=== PATIENT | female | born 1955 | race Caucasian/White ===

== ENCOUNTER 2016-12-31 03:51 | Emergency (ER) | payer OTHER ==
[~2016-12-31] VITALS: Ht 167.6 cm; Wt 150.7 kg
[2016-12-31] MEDS ORDERED: KETOROLAC 30 MG/1 ML ONE (04:22)
[2016-12-31] MEDS ORDERED: KETOROLAC 30 MG/1 ML IVPush ONE (04:30)
[2016-12-31] MEDS ORDERED: HYDROmorphone 1 MG/ML, 1ML ONE ×2 (04:40→05:29)
[2016-12-31] MEDS ORDERED: LISIN (04:47)
[2016-12-31] MEDS ORDERED: METFORMIN (04:47)
[2016-12-31] MEDS ORDERED: ZOLP-413 PO (04:47)
[2016-12-31 04:56] LABS: HEMATOCRIT 43.9 % (34.6-47.8); WHITE BLOOD COUNT 8.9 x10^3/uL (3.4-10)
[2016-12-31] MEDS ORDERED: HYDROmorphone 1 MG/ML, 1ML IV ONE ×2 (05:00→06:00)
[2016-12-31 05:04] LABS: BLOOD UREA NITROGEN 19 mg/dL (7-18)
[2016-12-31 05:08] LABS: ASPARTATE AMINO TRANSFERASE 55 U/L (15-37)
[2016-12-31] MEDS ORDERED: FLUCONAZOLE 100 MG TABLET PO ONE (05:30)
[2016-12-31 08:23] VITALS: BP 141/75
== END 2016-12-31 09:09 | disposition home or self-care (01) ==
LOC: ED 04:44
DX: B37.3 Candidiasis of vulva and vagina (principal); E11.9 Type 2 diabetes mellitus without complications; I10 Essential (primary) hypertension; Z90.710 Acquired absence of both cervix and uterus; Z90.49 Acquired absence of other specified parts of digestive tract
CPT/HCPCS: 36415; 74176; 80053; 81001; 83690; 85025; 87086; 87106; 96374; 96375; 96376; 99285; J1170; J1885

== ENCOUNTER 2020-03-19 21:45 | Inpatient (IN) | payer OTHER ==
[~2020-03-19] VITALS: Ht 167.6 cm; Wt 135.5 kg
[~2020-03-19 21:45] MED LIST: LISIN; METFORMIN; ZOLP-413 PO
--- NOTE | 2020-03-19 22:21 | NUR ---
Pt. in soiled clothing. Skin dirty. Entire buttocks and groin red and tender. This RN discarding pt.'s soiled clothing, cleaning pt, now on clean dry bedding, warm blankets provided. Lab at bedside.
[2020-03-19] MEDS ORDERED: MORPHINE SULFATE 4 MG/ML, 1ML IVPush PRN (22:30)
[2020-03-19] MEDS ORDERED: ONDANSETRON 2MG/ML, 2ML IVPush ONE (22:30)
[2020-03-19] MEDS ORDERED: SODIUM CHLORIDE 0.9% 1,000ML IVBOLUS ONE (22:30)
[2020-03-19] MEDS ORDERED: ONDANSETRON 2MG/ML, 2ML ONE (22:34)
[2020-03-19 22:35] LABS: BASOPHILS % (AUTO) 1 % (0-1); EOSINOPHILS % (AUTO) 0 % (1-7); LYMPHOCYTES % (AUTO) 11 % (22-44); MEAN CORPUSCULAR HEMOGLOBIN 30.6 pg (27.0-34.8); MEAN CORPUSCULAR HGB CONC 33.8 g/dL (32.4-35.8); MEAN PLATELET VOLUME 8.4 fL (7.4-10.4); MONOCYTES % (AUTO) 9 % (2-9); NEUTROPHILS % (AUTO) 79 % (42-75); PLATELET COUNT 325 x10^3/uL (130-400); RED BLOOD COUNT 4.79 x10^6/uL (3.82-5.3); RED CELL DISTRIBUTION WIDTH 13.5 % (9.6-15.2)
[2020-03-19] MEDS ORDERED: MORPHINE SULFATE 4 MG/ML, 1ML ONE (22:35)
--- NOTE | 2020-03-19 22:38 | NUR ---
Pt to imaging
[2020-03-19 22:42] LABS: INTERNATIONAL NORMALIZED RATIO 1.1 (0.93-1.1); PROTHROMBIN TIME 11.6 Seconds (9.6-11.5)
--- NOTE | 2020-03-19 22:46 | NUR ---
BREAK RN: PT. OUT OF ROOM FOR IMAGING; AWAITING RETURN FOR MEDS/IVF.
[2020-03-19 22:54] LABS: ALBUMIN 3.6 g/dL (3.4-5.0); CALCIUM 8.9 mg/dL (8.5-10.1); CREATININE 1.01 mg/dL (0.55-1.02)
[2020-03-19 22:59] LABS: MD SCAN
[2020-03-19] MEDS ORDERED: CEFTRIAXONE PMX 1GM/50ML 50 ML IV ONE (23:00)
[2020-03-19] MEDS ORDERED: CEFTRIAXONE PMX 1GM/50ML 50 ML ONE (23:03)
--- NOTE | 2020-03-19 23:11 | NUR ---
BREAK RN: IMANI CARE PROVIDED AND PURWICK PLACED. PT. SKIN TO GROIN AND IMANI AREA EXCORIATED; PT. STATES "I WAS UNABLE TO GET UP SO I LAID IN MY OWN PEE FOR HOURS." IV ABX HUNG AFTER 2 SETS OF BLOOD CULTURES COMPLETED.
[2020-03-19 23:18] LABS: ALANINE AMINOTRANSFERASE 32 U/L (12-78); ALKALINE PHOSPHATASE 75 U/L (45-117); ANION GAP 11 mmol/L (5-15); CHLORIDE 106 mmol/L (98-107); CREATINE KINASE, TOTAL 1060 U/L (26-192); TOTAL PROTEIN 7.1 g/dL (6.4-8.2); TROPONIN I < 0.015 ng/mL (0.000-0.045)
[2020-03-19 23:21] LABS: BILIRUBIN,TOTAL 1.2 mg/dL (0.2-1.0)
--- NOTE | 2020-03-19 23:53 | NUR ---
Pt resting in bed, denies needs at this time.
--- NOTE | 2020-03-20 00:13 | NUR ---
RN at bedside. Rocephin infusion complete. NS infusing. Pt reports the morphine helped with the pain but she still feels a little sore.
[2020-03-20] MEDS ORDERED: SODIUM CHLORIDE 0.9% 1,000ML IVBOLUS ONE (00:30)
[2020-03-20] MEDS ORDERED: NYSTATIN CRM 15GM TP ONE (00:38)
[2020-03-20] MEDS ORDERED: ONDANSETRON ODT 4 MG PO PRN (01:00)
[2020-03-20] MEDS: SODIUM CHLORIDE 0.9% 1,000 ML IV SCH ×2 (01:00→16:18)
[2020-03-20] MEDS ORDERED: PROMETHAZINE 25 MG/ML, 1ML IM PRN (01:00)
[2020-03-20] MEDS ORDERED: DOCUSATE 100 MG CAPSULE PO PRN (01:00)
[2020-03-20] MEDS ORDERED: POLYETHYLENE GLYCOL 17 GM PACKET PO PRN (01:00)
[2020-03-20] MEDS ORDERED: BISACODYL 10 MG SUPP PR PRN (01:00)
[2020-03-20] MEDS ORDERED: ONDANSETRON 2MG/ML, 2ML IVPush PRN (01:00)
--- NOTE | 2020-03-20 01:02 | NUR ---
Leon SONG collected and walked to lab.
--- NOTE | 2020-03-20 01:02 | NUR ---
Nystatin cream applied.
[2020-03-20] MEDS ORDERED: ENOXAPARIN 40 MG/0.4 ML ONE (01:06)
--- NOTE | 2020-03-20 01:30 | NUR ---
This RN talked to pt.'s daughter in law on phone per pt. permission and gave her update.
[2020-03-20 01:45] LABS: MICROSCOPIC INDICATED
[2020-03-20] MEDS: ENOXAPARIN 40 MG/0.4 ML SQ SCH (01:45)
--- NOTE | 2020-03-20 01:46 | NUR ---
Attempted 3x to get fingerstick bedside blood glucose but glucometer read "error" everytime. Lovenox shot given.
--- NOTE | 2020-03-20 02:00 | NUR ---
Bedside sugar 292
--- NOTE | 2020-03-20 02:03 | NUR ---
Pt.'s daughter in-law Marli phone number: [phone].
--- NOTE | 2020-03-20 02:05 | NUR ---
Pt being tranpsorted to room 365.
[2020-03-20 02:22] VITALS: BP 143/65
[2020-03-20] MEDS: morphine SULFATE 10 MG/ML, 1ML IVPush PRN ×4 (02:53→13:04)
[2020-03-20 02:59] LABS: BASOPHILS % (AUTO) 1 % (0-1); EOSINOPHILS % (AUTO) 1 % (1-7); LYMPHOCYTES % (AUTO) 19 % (22-44); MEAN CORPUSCULAR HEMOGLOBIN 30.8 pg (27.0-34.8); MEAN CORPUSCULAR HGB CONC 34.1 g/dL (32.4-35.8); MEAN PLATELET VOLUME 8.3 fL (7.4-10.4); MONOCYTES % (AUTO) 13 % (2-9); NEUTROPHILS % (AUTO) 66 % (42-75); PLATELET COUNT 261 x10^3/uL (130-400); RED CELL DISTRIBUTION WIDTH 13.4 % (9.6-15.2)
[2020-03-20] MEDS ORDERED: LISI40TA PO (03:11)
[2020-03-20 03:13] LABS: ALANINE AMINOTRANSFERASE 27 U/L (12-78); ALBUMIN 3.1 g/dL (3.4-5.0); ANION GAP 10 mmol/L (5-15); CALCIUM 8.3 mg/dL (8.5-10.1); CHLORIDE 110 mmol/L (98-107)
[2020-03-20] MEDS ORDERED: GLIP10TA13 PO (03:13)
[2020-03-20] MEDS ORDERED: ZOLP10TA PO (03:16)
[2020-03-20] MEDS ORDERED: TOPI50TA8 PO (03:16)
[2020-03-20 03:21] LABS: ALKALINE PHOSPHATASE 62 U/L (45-117); CHOL/HDL RATIO 2.9; CHOLESTEROL, TOTAL 126 mg/dL (140-239); CREATININE 0.75 mg/dL (0.55-1.02); HDL CHOL % 35 % (28-40); HDL CHOLESTEROL (DIRECT) 44 mg/dL (40-60); LDL CHOLESTEROL,CALCULATED 57 mg/dL (54-169); LDL/HDL RATIO 1.3 (0.5-3.0); TOTAL PROTEIN 6.2 g/dL (6.4-8.2); TRIGLYCERIDES 124 mg/dL (50-200); VLDL CHOLESTEROL 25 mg/dL (0-25)
[2020-03-20] MEDS ORDERED: METF10007 PO (03:23)
[2020-03-20] MEDS ORDERED: DICL-249 PO (03:23)
[2020-03-20] MEDS ORDERED: ATOR20TA86 PO (03:23)
[2020-03-20] MEDS: INSULIN LISPRO 100 UNITS/ML, PEN SQ-INSULIN SCH ×5 (03:45→21:05)
[2020-03-20 03:49] LABS: MD SCAN
[2020-03-20] MEDS ORDERED: FLU VACC QS2020-21(6MOS UP)/PF 60MCG/0.5 ML SYR IM ONE (04:00)
[2020-03-20 06:51] VITALS: BP 121/70
[2020-03-20 12:28] VITALS: BP 161/90
[2020-03-20] MEDS ORDERED: ACETAMINOPHEN 325 MG TABLET PO PRN (13:30)
[2020-03-20] MEDS: MORPHINE SULFATE 4 MG/ML, 1ML IVPush PRN ×2 (17:02→21:05)
[2020-03-20 19:30] VITALS: BP 129/66
[2020-03-20] MEDS: HYDROCORTISONE CRM 2.5%, 20GM TP SCH (21:05)
[2020-03-20] MEDS: CEFTRIAXONE PMX 2GM/50ML 50 ML IVPB SCH (23:03)
[2020-03-20] MEDS: OXYcodone IR 5MG TABLET PO PRN (23:09)
[2020-03-21] MEDS: ENOXAPARIN 40 MG/0.4 ML SQ SCH ×2 (00:53→23:44)
[2020-03-21] MEDS: SODIUM CHLORIDE 0.9% 1,000 ML IV SCH (00:53)
[2020-03-21 02:35] VITALS: BP 153/71
[2020-03-21] MEDS: OXYcodone IR 5MG TABLET PO PRN ×4 (03:30→21:23)
[2020-03-21] MEDS: ACETAMINOPHEN 325 MG TABLET PO PRN (03:30)
[2020-03-21 06:46] VITALS: BP 147/71
[2020-03-21] MEDS: INSULIN LISPRO 100 UNITS/ML, PEN SQ-INSULIN SCH ×4 (07:32→20:25)
[2020-03-21] MEDS: HYDROCORTISONE CRM 2.5%, 20GM TP SCH ×2 (08:04→20:24)
[2020-03-21] MEDS: metFORMIN 500 MG TABLET PO SCH ×2 (09:56→16:30)
[2020-03-21] MEDS: MORPHINE SULFATE 4 MG/ML, 1ML IVPush PRN ×4 (11:28→23:58)
[2020-03-21 13:04] VITALS: BP 157/72
[2020-03-21 18:50] VITALS: BP 156/71
[2020-03-21] MEDS: CEFTRIAXONE PMX 2GM/50ML 50 ML IVPB SCH (22:47)
[2020-03-22] VITALS (7 sets, daily range): BP systolic 149–197; BP diastolic 63–97
[2020-03-22] MEDS: OXYcodone IR 5MG TABLET PO PRN ×5 (01:57→21:41)
[2020-03-22] MEDS: MORPHINE SULFATE 4 MG/ML, 1ML IVPush PRN (04:08)
[2020-03-22 06:05] LABS: BASOPHILS % (AUTO) 1 % (0-1); EOSINOPHILS % (AUTO) 3 % (1-7); LYMPHOCYTES % (AUTO) 28 % (22-44); MEAN CORPUSCULAR HEMOGLOBIN 30.8 pg (27.0-34.8); MEAN CORPUSCULAR HGB CONC 34.3 g/dL (32.4-35.8); MONOCYTES % (AUTO) 9 % (2-9); NEUTROPHILS % (AUTO) 60 % (42-75); PLATELET COUNT 258 x10^3/uL (130-400); RED BLOOD COUNT 4.18 x10^6/uL (3.82-5.3)
[2020-03-22 06:19] LABS: CHLORIDE 107 mmol/L (98-107); MD NO
[2020-03-22 06:25] LABS: ANION GAP 8 mmol/L (5-15); CALCIUM 8.7 mg/dL (8.5-10.1); CREATININE 0.52 mg/dL (0.55-1.02)
[2020-03-22] MEDS: hydrALAzine 20 MG/ML, 1ML IVPush PRN ×3 (08:00→19:22)
[2020-03-22] MEDS: metFORMIN 500 MG TABLET PO SCH ×2 (08:02→16:57)
[2020-03-22] MEDS: HYDROCORTISONE CRM 2.5%, 20GM TP SCH ×2 (08:03→19:58)
[2020-03-22] MEDS: INSULIN LISPRO 100 UNITS/ML, PEN SQ-INSULIN SCH ×4 (08:04→19:57)
[2020-03-22] MEDS: METHOCARBAMOL 500 MG TABLET PO SCH ×3 (13:27→19:50)
[2020-03-22] MEDS: LISINOPRIL 40 MG TABLET PO SCH (13:27)
[2020-03-22] MEDS: metroNIDAZOLE 500 MG TABLET PO SCH ×2 (13:27→21:39)
[2020-03-22] MEDS: POLYETHYLENE GLYCOL 17 GM PACKET PO SCH (13:54)
[2020-03-22] MEDS: BISACODYL 10 MG SUPP PR SCH (13:54)
[2020-03-22] MEDS: GABAPENTIN 100 MG CAPSULE PO SCH ×2 (16:57→19:50)
[2020-03-22] MEDS: LORazepam 2 MG/ML, 1ML IVPush ONE ×2 (17:56→18:12)
[2020-03-22] MEDS: PHENAZOPYRIDINE 100 MG TABLET PO PRN (22:28)
[2020-03-22] MEDS: CEFTRIAXONE PMX 2GM/50ML 50 ML IVPB SCH (22:32)
[2020-03-23] MEDS: ENOXAPARIN 40 MG/0.4 ML SQ SCH ×2 (00:51→23:20)
[2020-03-23] MEDS: PHENAZOPYRIDINE 100 MG TABLET PO PRN (01:07)
[2020-03-23 03:09] VITALS: BP 157/80
[2020-03-23] MEDS: metroNIDAZOLE 500 MG TABLET PO SCH ×3 (05:07→20:21)
[2020-03-23] MEDS: GABAPENTIN 100 MG CAPSULE PO SCH ×4 (05:07→20:21)
[2020-03-23] MEDS: SODIUM CHLORIDE 0.9% 1,000 ML IV SCH ×2 (06:32→20:22)
[2020-03-23 07:42] VITALS: BP 132/68
[2020-03-23] MEDS: INSULIN LISPRO 100 UNITS/ML, PEN SQ-INSULIN SCH ×4 (08:44→20:33)
[2020-03-23] MEDS: LISINOPRIL 40 MG TABLET PO SCH (08:44)
[2020-03-23] MEDS: METHOCARBAMOL 500 MG TABLET PO SCH ×3 (08:44→20:21)
[2020-03-23] MEDS: metFORMIN 500 MG TABLET PO SCH ×2 (08:44→17:52)
[2020-03-23] MEDS: POLYETHYLENE GLYCOL 17 GM PACKET PO SCH (08:44)
[2020-03-23] MEDS: BISACODYL 10 MG SUPP PR SCH (08:45)
[2020-03-23] MEDS: HYDROCORTISONE CRM 2.5%, 20GM TP SCH ×2 (08:45→20:22)
[2020-03-23] MEDS: OXYcodone IR 5MG TABLET PO PRN (12:01)
[2020-03-23 12:11] VITALS: BP 151/74
[2020-03-23] MEDS ORDERED: OXYcodone IR 5MG TABLET PO PRN (17:00)
[2020-03-23 19:27] VITALS: BP 141/69
[2020-03-23] MEDS: CEFTRIAXONE PMX 2GM/50ML 50 ML IVPB SCH (23:20)
[2020-03-23 23:54] VITALS: BP 167/76
[2020-03-24] MEDS: ACETAMINOPHEN 325 MG TABLET PO PRN (01:09)
[2020-03-24] MEDS: metroNIDAZOLE 500 MG TABLET PO SCH ×3 (05:17→20:49)
[2020-03-24] MEDS: GABAPENTIN 100 MG CAPSULE PO SCH ×4 (05:17→20:49)
[2020-03-24 06:16] VITALS: BP 147/87
[2020-03-24 06:26] VITALS: BP 175/78
[2020-03-24] MEDS: INSULIN LISPRO 100 UNITS/ML, PEN SQ-INSULIN SCH ×4 (07:00→20:50)
[2020-03-24] MEDS: METHOCARBAMOL 500 MG TABLET PO SCH ×3 (07:58→20:49)
[2020-03-24] MEDS: POLYETHYLENE GLYCOL 17 GM PACKET PO SCH (07:58)
[2020-03-24] MEDS: LISINOPRIL 40 MG TABLET PO SCH (07:58)
[2020-03-24] MEDS: metFORMIN 500 MG TABLET PO SCH ×2 (07:58→16:11)
[2020-03-24] MEDS: HYDROCORTISONE CRM 2.5%, 20GM TP SCH ×2 (07:59→20:49)
[2020-03-24] MEDS: BISACODYL 10 MG SUPP PR SCH (07:59)
[2020-03-24 13:03] VITALS: BP 151/71
[2020-03-24 18:31] VITALS: BP 153/79
[2020-03-24] MEDS: CEFTRIAXONE PMX 2GM/50ML 50 ML IVPB SCH (22:34)
[2020-03-24] MEDS: ENOXAPARIN 40 MG/0.4 ML SQ SCH (22:35)
[2020-03-24] MEDS: ATORVASTATIN 20 MG TABLET PO SCH (22:38)
[2020-03-25 00:12] VITALS: BP 135/72
[2020-03-25] MEDS: GABAPENTIN 100 MG CAPSULE PO SCH ×4 (06:09→20:26)
[2020-03-25] MEDS: INSULIN LISPRO 100 UNITS/ML, PEN SQ-INSULIN SCH ×4 (07:33→20:28)
[2020-03-25] MEDS: metFORMIN 500 MG TABLET PO SCH ×2 (07:34→16:25)
[2020-03-25] MEDS: LISINOPRIL 40 MG TABLET PO SCH (07:34)
[2020-03-25] MEDS: POLYETHYLENE GLYCOL 17 GM PACKET PO SCH (07:34)
[2020-03-25] MEDS: TOPIRAMATE 25 MG TABLET PO SCH ×2 (07:34→20:26)
[2020-03-25] MEDS: METHOCARBAMOL 500 MG TABLET PO SCH ×3 (07:34→20:27)
[2020-03-25] MEDS: HYDROCORTISONE CRM 2.5%, 20GM TP SCH ×2 (07:34→20:26)
[2020-03-25] MEDS: BISACODYL 10 MG SUPP PR SCH (07:35)
[2020-03-25 08:41] VITALS: BP 140/85
[2020-03-25] MEDS ORDERED: BISA10SU4 PR (12:34)
[2020-03-25] MEDS ORDERED: ONDA4TAB13 PO (12:34)
[2020-03-25] MEDS ORDERED: ENOX40SY4 SQ (12:34)
[2020-03-25] MEDS ORDERED: METH500T7 PO (12:34)
[2020-03-25] MEDS ORDERED: ZOLP-413 PO (12:34)
[2020-03-25] MEDS ORDERED: DOCU100C33 PO (12:34)
[2020-03-25] MEDS ORDERED: INSU100I11 SQ-INSULIN (12:34)
[2020-03-25] MEDS ORDERED: ACET325T26 PO (12:34)
[2020-03-25] MEDS ORDERED: SULF1TAB24 PO (12:36)
[2020-03-25 14:12] VITALS: BP 148/75
[2020-03-25 18:34] VITALS: BP 163/85
[2020-03-25] MEDS: ATORVASTATIN 20 MG TABLET PO SCH (20:26)
[2020-03-25] MEDS: ENOXAPARIN 30 MG/0.3 ML SQ SCH (20:27)
[2020-03-25] MEDS: CEFTRIAXONE PMX 2GM/50ML 50 ML IVPB SCH (22:59)
[2020-03-26 00:12] VITALS: BP 165/77
[2020-03-26] MEDS: GABAPENTIN 100 MG CAPSULE PO SCH ×2 (06:15→11:44)
[2020-03-26] MEDS: INSULIN LISPRO 100 UNITS/ML, PEN SQ-INSULIN SCH ×2 (07:00→11:00)
[2020-03-26 07:09] VITALS: BP 155/77
[2020-03-26] MEDS: metFORMIN 500 MG TABLET PO SCH (07:34)
[2020-03-26] MEDS: ACETAMINOPHEN 325 MG TABLET PO PRN (07:35)
[2020-03-26] MEDS: LISINOPRIL 40 MG TABLET PO SCH (08:57)
[2020-03-26] MEDS: TOPIRAMATE 25 MG TABLET PO SCH (08:57)
[2020-03-26] MEDS: METHOCARBAMOL 500 MG TABLET PO SCH (08:57)
[2020-03-26] MEDS: HYDROCORTISONE CRM 2.5%, 20GM TP SCH (08:58)
[2020-03-26] MEDS: ENOXAPARIN 30 MG/0.3 ML SQ SCH (08:58)
[2020-03-26] MEDS: POLYETHYLENE GLYCOL 17 GM PACKET PO SCH (08:59)
[2020-03-26] MEDS: BISACODYL 10 MG SUPP PR SCH (09:00)
== END 2020-03-26 13:49 | DRG 872 ==
LOC: ED 03-20 01:44 → 3N 03-20 02:17
PROVIDERS: ADMIT Internal Medicine; ATTEND Internal Medicine
PROC: 0T9B70Z Drainage of Bladder with Drainage Device, Via Natural or Artificial Opening (ICD-10-PCS; principal; 2020-03-20)
DX: A41.9 Sepsis, unspecified organism (principal); M62.82 Rhabdomyolysis; N39.0 Urinary tract infection, site not specified; Z68.42 Body mass index [BMI] 45.0-49.9, adult; B96.20 Unspecified Escherichia coli [E. coli] as the cause of diseases classified elsewhere; E11.65 Type 2 diabetes mellitus with hyperglycemia; E66.9 Obesity, unspecified; E78.5 Hyperlipidemia, unspecified; M25.552 Pain in left hip; M25.551 Pain in right hip; W18.39XA Other fall on same level, initial encounter; E86.0 Dehydration; E87.6 Hypokalemia; L89.322 Pressure ulcer of left buttock, stage 2; L89.312 Pressure ulcer of right buttock, stage 2; S30.810A Abrasion of lower back and pelvis, initial encounter; I10 Essential (primary) hypertension; K59.00 Constipation, unspecified; Z60.2 Problems related to living alone; Z20.822 Contact with and (suspected) exposure to COVID-19; Z79.899 Other long term (current) drug therapy; Z90.710 Acquired absence of both cervix and uterus; Z90.49 Acquired absence of other specified parts of digestive tract; Y93.89 Activity, other specified; Y99.8 Other external cause status; Y92.098 Other place in other non-institutional residence as the place of occurrence of the external cause; Z88.0 Allergy status to penicillin
CPT/HCPCS: 36415; 71045; 80048; 80053; 80061; 81001; 82550; 82962; 83036; 83605; 83735; 84100; 84443; 84484; 85025; 85610; 85730; 87040; 87077; 87086; 87186; 87635; 93005; 96365; 96375; G0378; J0696; J1650; J2405; J0360; J1815; J2060; J2270; J7030